=== PATIENT | male | born 1945 | race Caucasian/White ===

== ENCOUNTER → 2016-08-15 | Outpatient (CLI) | payer MEDICARE, BC ==
[~2016-08-15] MED LIST: ASPIRIN81 M1 PO; ATENOLOL50 MG PO; BAYER ASPIRIN325 M1 PO; FISH OIL 1,0001 CA2 PO; FLAXSEED OIL1000 M1 PO; GABAPENTIN300 MG PO; KEFLEX500 M1 PO; LUTEIN20 MG PO; MULTI-DAY VITAM1 TAB PO; NEXIUM PO; OMEPRAZOLE40 MG PO; PROTONIX PO; VITAMIN D5000 UNIT PO; VOLTAREN75 MG PO; ZEGERID OTC 201 EACH PO
--- NOTE | ~2016-08-15 | US13 ---
[facility] A Service of [facility] & [facility] RADIOLOGY TEXT RESULTS PATIENT: CAROLIN MANTILLA LOCATION: [facility] : 47 UNIT #: [id number] AGE: [address]: Gerry Todd MD SEX: M ORDER DR: [id number] [place] [id number] O MR#: [id number] Acc #: [id number] NAME: CAROLIN MANTILLA : 1945 SEX: M STUDY DATE/TIME: 08/15/2016 8:10 [facility] RO[facility]: STUDY DESCRIPTION: US Aorta Limited Attending Physician: Gerry Todd Jr., M.D. Referring Physician: Gerry Todd Jr., M.D. Ordering Physician: Gerry Todd Jr., M.D. Primary Care Physician: Gerry Todd Jr., M.D. MEDICAL IMAGING REPORT This report is preliminary unless electronic signature is present. EXAM Abdominal aortic ultrasound DATE OF EXAMINATION: 08/15/16 RESON FOR EXAM: Previous smoker FINDINGS B mode imaging and color Doppler imaging of the infrarenal aorta was performed that demonstrated and widely patent vessel throughout without evidence of stenosis and a mid aortic velocity of 85 cm/sec. The proximal infrarenal aorta was 2.6 cm in diameter, mid aorta 2.5 cm and in diameter aorta, 1.9 cm. IMPRESSION No evidence of infrarenal abdominal aortic aneurysm. Dictated by... Dayron Churchill M.D. THIS IS AN ELECTRONICALLY VERIFIED REPORT Dayron Churchill M.D. at 08/17/2016 2:55 PM MEGHAN/jovanny TD: 08/15/2016 13:32 JOB #: [id number] MEDICAL IMAGING REPORT Page 1 of 1
== END | disposition home or self-care (01) ==
LOC: SRAD 08:06 → SGUS 08:30
DX: Z13.6 Encounter for screening for cardiovascular disorders (principal)
CPT/HCPCS: 76775